=== PATIENT | male | born 1995 | race African-American/Black ===

== ENCOUNTER 2018-04-27 20:30 | Emergency (ER) | payer SELFPAY ==
[~2018-04-27] VITALS: Ht 175.3 cm; Wt 75.0 kg
[2018-04-27] MEDS ORDERED: ATEN50TA MT (23:34)
[2018-04-27] MEDS ORDERED: FLEC150T2 MT (23:34)
[2018-04-27 23:47] VITALS: BP 114/65
== END 2018-04-27 23:49 | disposition home or self-care (01) ==
LOC: ER 20:30
DX: F10.129 Alcohol abuse with intoxication, unspecified (principal); R11.10 Vomiting, unspecified; Y90.9 Presence of alcohol in blood, level not specified; Z91.013 Allergy to seafood; Z98.890 Other specified postprocedural states
CPT/HCPCS: 99283